=== PATIENT | female | born 1955 | race Caucasian/White ===

== ENCOUNTER 2025-06-25 09:30 | Outpatient (CLI) | payer MEDICARE | END 2025-06-25 09:31 | disposition home or self-care (01) | LOC: CSHSLEEP 09:30 | PROVIDERS: ATTEND Family Medicine | DX: G47.33 Obstructive sleep apnea (adult) (pediatric) (principal); R53.83 Other fatigue; E66.9 Obesity, unspecified; Z68.42 Body mass index [BMI] 45.0-49.9, adult; R06.83 Snoring | CPT/HCPCS: 95810 ==